=== PATIENT | female | born 1955 | race Caucasian/White ===

== ENCOUNTER → 2020-03-24 | Outpatient (CLI) | payer BC ==
[~2020-03-24] MED LIST: ASPIRIN CHEWABL81 MG PO; LEVOTHYROXINE50 MCG PO; LISINOPRIL40 MG PO; LOVASTATIN40 MG PO; METOPROLOL TAR100 MG PO; MIRTAZAPINE15 MG PO; NITROSTAT 0.40.4 MG SL; PROTONIX 40 MG40 M1 PO; SUPER B COMPLE1 EAC1 PO; VISION FORMULA1 EAC1 PO; VITAMIN B-6100 MG PO; XIIDRA EYEBOTH
[2020-03-24 08:25] LABS: HEMOGLOBIN 12.7 gm/dl (12.3-15.3); RED BLOOD COUNT 4.46 M/UL (4.00-5.10); WHITE BLOOD COUNT 5.8 K/UL (4.5-11.0)
[2020-03-24 08:42] LABS: BUN/CREATININE RATIO 15 (0-10)
== END ==
LOC: OPSV2 06:59
PROVIDERS: Podiatrist Foot & Ankle Surgery
DX: Z01.818 Encounter for other preprocedural examination (principal); M21.371 Foot drop, right foot; R00.1 Bradycardia, unspecified
CPT/HCPCS: 36415; 80048; 85027; 93005

== ENCOUNTER → 2020-03-25 | Day surgery (SDC) | payer BC ==
[~2020-03-25] VITALS: Ht 170.2 cm; Wt 71.2 kg
== END | disposition home or self-care (01) ==
LOC: OR 08:06
DX: M21.371 Foot drop, right foot (principal); I10 Essential (primary) hypertension; D64.9 Anemia, unspecified; E03.9 Hypothyroidism, unspecified; E78.5 Hyperlipidemia, unspecified; K21.9 Gastro-esophageal reflux disease without esophagitis; F41.9 Anxiety disorder, unspecified; F32.9 Major depressive disorder, single episode, unspecified; I25.2 Old myocardial infarction; M19.90 Unspecified osteoarthritis, unspecified site; Z96.641 Presence of right artificial hip joint; Z88.5 Allergy status to narcotic agent; Z79.82 Long term (current) use of aspirin; Z79.899 Other long term (current) drug therapy; Z79.890 Hormone replacement therapy; Z88.0 Allergy status to penicillin
CPT/HCPCS: 76000; C1713; C1763; J1100; J1170; J1885; J2001; J2250; J2405; J2704; J2795; J3010; J7120; Q4133

== ENCOUNTER 2020-04-02 22:29 | Emergency (ER) | payer BC | END 2020-04-03 01:02 | disposition home or self-care (01) | LOC: ER1 22:29 | DX: Z48.817 Encounter for surgical aftercare following surgery on the skin and subcutaneous tissue (principal); Z98.890 Other specified postprocedural states; Z88.0 Allergy status to penicillin; Z88.1 Allergy status to other antibiotic agents | CPT/HCPCS: 99283 ==